=== PATIENT | male | born 1955 | race Caucasian/White ===

== ENCOUNTER 2021-11-15 07:48 | Outpatient (RCR) | payer OTHER, SELFPAY ==
--- NOTE | 2021-11-15 07:34 | PTOPEVAL ---
Thank you for referring Ryland Clarke to [facility].? The patient is scheduled to be seen for therapy? __2__x/week for 8 visits. Please review, sign, date and return this plan of care UZIEL. I agree with and certify that the following plan of care is medically necessary. Referring Physician Date Admitting Provider: Attending Provider: Siena Chris Referring Provider: *PT Outpatient Evaluation Start: 11/15/21 07:00 Freq: Status: Active Protocol: Document 11/15/21 07:00 KB (Rec: 11/15/21 07:34 KB [email or web address]) Therapy Assessment Status Assessment Status Assessment Status Evaluation Evaluation Information Problem Diagnosis back pain, neck pain Onset 11/15/20 Subjective Information Pt. reports that he has had Query Text:As Reported By Patient/ back pain his whole life. He Family describes his worst pain at the neck and into the left shoulder. He reports that he is pain is constant. He reports that pain is increased with lifting. He states that he cannot get a gallon of milk out of the refridgerator without increased left shoulder and arm pain. Pt. recalls having numbness in the left hand, but states that it is less severe. 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 He reports that his goal is to decrease his neck and back pain. Pain Assessment Timing of Pain Assessment Timing of Pain Assessment Pre-Treatment Pain Scale Pain Scale Used Numeric (1 - 10) Self Report Pain Assessment Neck Reported Pain Level 8 Pain Description Aching Pain Score Pain Score 8: Self Report Interventions Used Interventions Used By Clinicians Electrical Stimulation, Exercise,Heat Cervical and Lumbar ROM Cervical ROM Cervical Flexion (0-60) 55 Query Text:Active in Degrees Cervical Extension (0-70) 60 Query Text:Active in Degrees Cervical Lateral Flexion Right (0-50) 27 Query Text:Active in Degrees Cervical Lateral Flexion Left (0-50) 22 Query Text:Active in Degrees Cervical Rotation Right (0-90) 80 Query Text:Active in Degrees Cervical Rotation Left (0-90) 72 Query Text:Active in Degrees Up
--- NOTE | 2022-03-21 12:55 | PCPTNOTE ---
Mr. Clarke attended a total of 5 treatment sessions. He has failed to return to the clinic and will be discharged from our care. Refer to last daily note for pt. discharge status.
== END 2021-11-29 23:59 | disposition home or self-care (01) ==
LOC: CHSPT 07:48
PROVIDERS: PCP Family Medicine
DX: M51.24 Other intervertebral disc displacement, thoracic region (principal)
CPT/HCPCS: 97014; 97110; 97140; 97161; G0283